=== PATIENT | female | born 1940 | race Hispanic/Latino ===

== ENCOUNTER 2016-03-18 11:57 | Emergency (ER) | payer MEDICARE ==
[~2016-03-18 11:57] MED LIST: ACET-171 PO; ALEN70TA2 PO; LISI-571 PO; LOVA20TA PO; NIFE60TA62 PO; NITR0.4T6 SL; TRAM1TAB7 PO
[2016-03-18 12:14] VITALS: BP 198/88; PULSE 81; RESP 18; O2SAT 99
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
[2016-03-18 14:13] VITALS: PULSE 81; RESP 18; O2SAT 99
--- NOTE | 2016-03-18 14:54 | DRSVH ---
PROCEDURE: X-RAY LEFT HIP COMPLETE, MINIMUM TWO VIEWS ([id number]) INDICATIONS: trauma TECHNIQUE: 2 views of the hip were acquired. COMPARISON: None. FINDINGS: Bones: No fractures or dislocations. No suspicious bony lesions. The visualized pelvic ring appear s intact. Soft tissues: No suspicious soft tissue calcifications or masses. IMPRESSION: No displaced fracture seen. If there is continued pain, followup exam or additional levar ging such as MRI or CT could be performed for further assessment. Dictated by: Issa Ramos [facility] Interpreted: Varinder Enriquez MD on 03/18/2016 at 14:53 Transcribed by: AV on 03/18/2016 at 14:53 Approved by: Varinder Enriquez M.D. on 03/19/2016 at 2:08
--- NOTE | 2016-03-18 14:57 | DRSVH ---
PROCEDURE: X-RAY LEFT SHOULDER, MINIMUM TWO VIEWS ([id number]) INDICATIONS: trauma TECHNIQUE: 3 views of the shoulder were acquired. COMPARISON: None. FINDINGS: Bones: No fractures or dislocations. No suspicious bony lesions. Visualized ribs appear intact. Soft tissues: No suspicious soft tissue calcifications. IMPRESSION: No trauma found. Dictated by: Varinder Enriquez M.D. on 03/18/2016 at 14:53 Approved by: Varinder Enriquez M.D. on 03/18/2016 at 14:55
--- NOTE | 2016-03-18 14:58 | DRSVH ---
PROCEDURE: X-RAY RIGHT SHOULDER, MINIMUM TWO VIEWS ([id number]) INDICATIONS: trauma TECHNIQUE: 3 views of the shoulder were acquired. COMPARISON: None. FINDINGS: Bones: No fractures or dislocations. No suspicious bony lesions. Visualized ribs appear intact. Soft tissues: No suspicious soft tissue calcifications. IMPRESSION: This is a mild to moderate change at the a.c. joint but no trauma found. Dictated by: Varinder Enriquez M.D. on 03/18/2016 at 14:55 Approved by: Varinder Enriquez M.D. on 03/18/2016 at 14:56
--- NOTE | 2016-03-18 15:12 | DRSVH ---
PROCEDURE: X-RAY LEFT KNEE, THREE VIEWS ([id number]) INDICATIONS: trauma TECHNIQUE: 3 views of the knee were acquired. COMPARISON: [facility], , KNEE 3VW (LT), 03/27/2013, 21:00. FINDINGS: Bones: No fractures or dislocations. No suspicious bony lesions. Soft tissues: No joint effusion. No suspicious soft tissue calcifications. IMPRESSION: Prior left total knee arthroplasty, no trauma found. Dictated by: Varinder Enriquez M.D. on 03/18/2016 at 14:56 Approved by: Varinder Enriquez M.D. on 03/18/2016 at 15:10
== END 2016-03-18 14:14 | disposition home or self-care (01) ==
LOC: SED 11:57 → EDUNIT# 11:57 → EDBD 11:57 → SED 14:14
DX: M25.562 Pain in left knee (principal); M25.552 Pain in left hip; M25.512 Pain in left shoulder; M25.511 Pain in right shoulder; Z87.828 Personal history of other (healed) physical injury and trauma; W10.1XXA Fall (on)(from) sidewalk curb, initial encounter; Y93.01 Activity, walking, marching and hiking; Y99.8 Other external cause status; Y92.480 Sidewalk as the place of occurrence of the external cause